=== PATIENT | male | born 1985 | race Caucasian/White ===

== ENCOUNTER 2021-05-11 21:14 | Emergency (ER) | payer MEDICAID ==
[~2021-05-11] VITALS: Ht 175.3 cm; Wt 79.4 kg
[2021-05-11 21:27] VITALS: BP_SYST 153
[2021-05-11 22:14] LABS: BILIRUBIN,URINE NEGATIVE (NEGATIVE); BLOOD, URINE 3+ (NEGATIVE); COLOR,URINE YELLOW (YELLOW); GLUCOSE,URINE NEGATIVE (NEGATIVE); KETONES,URINE NEGATIVE (NEGATIVE); LEUKOCYTE ESTERASE ,URINE 1+ (NEGATIVE); NITRITE, URINE NEGATIVE (NEGATIVE); PROTEIN URINE NEGATIVE (NEGATIVE); UROBILINOGEN,URINE 0.2 (0.2-1.0)
[2021-05-11 22:15] LABS: CLARITY/URINE HAZY (CLEAR)
[2021-05-11 22:35] LABS: BACTERIA,URINE MANY /HPF (None Seen); CALCIUM OXALATE CRYSTALS,UR None Seen /HPF (None Seen); CALCIUM PHOSPHATE CRYSTALS,UR None Seen /HPF (None Seen); COARSE GRANULAR CASTS,URINE None Seen /LPF (None Seen); FINE GRANULAR CASTS,URINE None Seen /LPF (None Seen); HYALINE CASTS, URINE None Seen /LPF (None Seen); MUCUS,URINE 1+ /LPF (None Seen); OTHER CASTS, URINE None Seen /LPF (None Seen); OTHER CRYSTALS,URINE None Seen /HPF (None Seen); RBC,URINE 50-80 /HPF (0-3); TRICHOMONAS,URINE None Seen /HPF (None Seen); TRIPLE PHOSPHATE CRYSTAL,UR None Seen /HPF (None Seen); URIC ACID CRYSTALS,URINE None Seen /HPF (None Seen); URINE AMORPHOUS PHOSPHATES None Seen /HPF (None Seen); URINE AMORPHOUS URATE None Seen /HPF (None Seen); WAXY CASTS,URINE None Seen /LPF (None Seen); YEAST,URINE None Seen /HPF (None Seen)
[2021-05-12] MEDS ORDERED: CEPH250C PO (00:57)
[2021-05-12] MEDS ORDERED: PHEN-726 PO (00:58)
[2021-05-12] MEDS ORDERED: cefTRIAXone 1 GM in LIDOCAINE 1%, 20 ML MDV 2.1 ML IM ONE (01:00)
[2021-05-12] MEDS ORDERED: PHENAZOPYRIDINE HCL 100 MG TABLET PO ONE (01:00)
[2021-05-12 01:20] VITALS: BP_SYST 132
== END 2021-05-12 01:20 | disposition home or self-care (01) ==
LOC: SED 21:14
DX: N39.0 Urinary tract infection, site not specified (principal); Z79.899 Other long term (current) drug therapy
CPT/HCPCS: 81000; 87086; 96372; 99283; J0696; J2001